=== PATIENT | male | born 1965 | race Caucasian/White ===

== ENCOUNTER 2018-07-12 16:29 | Emergency (ER) | payer OTHER ==
--- NOTE | 2018-07-12 17:32 | EDPHY ---
H & P Stated Complaint: urinary retention since this am Time Seen by Provider: 07/12/18 16:59 HPI/ROS: CHIEF COMPLAINT: Unable to urinate HISTORY OF PRESENT ILLNESS: 53-year-old male with BPH presents with inability to urinate. Onset of inability urinate this morning. Associated gradually increasing lower abdominal discomfort and bloating. Prior history of similar symptoms and January 2018, but resolved spontaneously. Takes Flomax for BPH. Took azo today. No dysuria or fever. REVIEW OF SYSTEMS: complete 10 point ROS reviewed and is negative except for the noted elements in the HPI - Medical/Surgical History Hx Asthma: No Hx Chronic Respiratory Disease: No Hx Diabetes: No Hx Cardiac Disease: No Hx Renal Disease: No Hx Cirrhosis: No Hx Alcoholism: No Hx HIV/AIDS: No Hx Splenectomy or Spleen Trauma: No Other PMH: denies - Social History Smoking Status: Never smoked Alcohol Use: Sober Drug Use: None - Physical Exam Exam: General Appearance: Alert, pleasant, seen after Roldan catheter placement Eyes: Pupils equal and round, no conjunctival pallor or injection ENT, Mouth: Mucous membranes moist Neck: Normal inspection Respiratory: Lungs are clear to auscultation Cardiovascular: Regular rate and rhythm Gastrointestinal: Abdomen is soft and nontender Neurological: A&O, nonfocal exam Skin: Warm and dry Extremities: Normal inspection Psychiatric: Mood and affect normal Constitutional: Initial Vital Signs Temperature (C) 36.5 C 07/12/18 16:45 Heart Rate 78 07/12/18 16:45 Respiratory Rate 18 07/12/18 16:45 Blood Pressure 125/82 H 07/12/18 16:45 O2 Sat (%) 97 07/12/18 16:45 O2 Delivery Mode Room Air Allergies/Adverse Reactions: No Known Allergies Allergy (Unverified 01/27/10 16:24) Home Medications: Medication Instructions Recorded Flomax 07/12/18 Medical Decision Making ED Course/Re-evaluation: Bladder scan: 1300 mL urine A Roldan catheter was placed with complete relief in symptoms. No evidence of UTI. Roldan catheter instructions given. Follow up with Urology. Differential Diagnosis: Differential diagnosis includes though it is not limited to acute prostatitis, appendicitis, cholecystitis, diverticulitis, pyelonephritis, bowel perforation, small bowel obstruction. - Data Points Laboratory Results: 07/12/18 17:10 Urine Color SUSANNAH Urine Appearance CLEAR Urine pH 5.0 (5.0-7.5) Ur Specific [place] 1.011 (1.002-1.030) Urine Protein NEGATIVE (NEGATIVE) Urine Ketones NEGATIVE (NEGATIVE) Urine Blood NEGATIVE (NEGATIVE) Urine Nitrate POSITIVE H (NEGATIVE) Urine Bilirubin NEGATIVE (NEGATIVE) Urine Urobilinogen 4.0 EU H EU (0.2-1.0) Ur Leukocyte Esterase NEGATIVE (NEGATIVE) Urine RBC 1-3 /hpf /hpf (0-3) Urine WBC 1-3 /hpf /hpf (0-3) Ur Epithelial Cells NONE SEEN /lpf /lpf (NONE-1+) Urine Bacteria TRACE /hpf H /hpf (NONE SEEN) Urine Mucus TRACE /lpf /lpf (NONE-1+) Urine Glucose NEGATIVE (NEGATIVE) Departure - Departure Disposition: Home, Routine, Self-Care Clinical Impression: Acute retention of urine Condition: Good Instructions: Urinary Retention in Men (ED) Additional Instructions: The roldan catheter should be removed on Saturday or Saturday. If you are unable to see a urologist, please see your primary care physician. Referrals: Fabienne Last MD [Medical Doctor] - As per Instructions (Call on Saturday to make an appointment.)
[2018-07-12 18:11] VITALS: BP 134/95
== END 2018-07-12 18:23 | disposition home or self-care (01) ==
DX: N40.1 Benign prostatic hyperplasia with lower urinary tract symptoms (principal); R33.9 Retention of urine, unspecified